=== PATIENT | male | born 1995 | race Two or more races ===

== ENCOUNTER 2016-11-25 17:16 | Emergency (ER) | payer OTHER ==
[~2016-11-25] VITALS: Ht 175.3 cm; Wt 88.6 kg
[~2016-11-25 17:16] MED LIST: AZIT250T PO; HYDR-971 PO; ONDA8TAB12 PO; PROM118S2 PO
[2016-11-25 17:28] VITALS: BP 122/75
[2016-11-25] MEDS ORDERED: KETOROLAC 60 MG/2 ML VIAL. IM ONE (18:00)
[2016-11-25] MEDS ORDERED: IBUP800T PO (18:04)
--- NOTE | 2016-11-25 18:05 | PHYS DOC ---
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 He states he has anteriorly dislocated in the right shoulder approximately 4 times. He states he popped it back in place but now is having significant pain in the right shoulder. He does have some range of motion in the right shoulder but it is limited secondary to pain. There is no obvious deformity or swelling seen. Review of Systems Review of Systems Constitutional: Denies fever or chills [] Eyes: Denies change in visual acuity, redness, or eye pain [] HENT: Denies nasal congestion or sore throat [] Respiratory: Denies cough or shortness of breath [] Cardiovascular: No additional information not addressed in HPI [] GI: Denies abdominal pain, nausea, vomiting, bloody stools or diarrhea [] : Denies dysuria or hematuria [] Musculoskeletal: Denies back pain, has joint pain [] Integument: Denies rash or skin lesions [] Neurologic: Denies headache, focal weakness or sensory changes [] Endocrine: Denies polyuria or polydipsia [] Current Medications Current Medications Current Medications Medications (Trade) Dose Ordered Sig/Brianda Start Time Stop Time Status Last Admin Dose Admin Ketorolac Tromethamine (Toradol) 60 mg 1X ONCE 11/25/16 18:00 11/25/16 18:01 11/25/16 17:45 60 MG Allergies Allergies Allergies Coded Allergies Type Severity Reaction Last Updated Verified No Known Drug Allergies 09/06/15 No Physical Exam Physical Exam Constitutional: Well developed, well nourished, no acute distress, non-toxic appearance. [] HENT: Normocephalic, atraumatic, bilateral external ears normal, oropharynx moist, no oral exudates, nose normal. [] Eyes: PERRLA, EOMI, conjunctiva normal, no discharge. [] Neck: Normal range of motion, no tenderness, supple, no stridor. [] Cardiovascular:Heart rate regular rhythm, no murmur [] Lungs & Thorax: Bilateral breath sounds clear to auscultation [] Abdomen: Bowel sounds normal, soft, no tenderness, no masses, no pulsatile masses. [] Skin: Warm, dry, no erythema, no rash. [] Back: No tenderness, no CVA tenderness. [] Extremities: Right sided shoulder tenderness, no palpable deformity or swelling , no cyanosis, no clubbing, ROM limited in right shoulder secondary to pain, no edema. [] Neurologic: Alert and oriented X 3, normal motor function, normal sensory function, no focal deficits noted. [] Psychologic: Affect normal, judgement normal, mood normal. [] Current Patient Data Vital Signs Vital Signs Date Time Temp Pulse Resp B/P Pulse Ox O2 Delivery O2 Flow Rate FiO2 11/25/16 17:28 97.8 81 20 97 EKG EKG [] Radiology/Procedures Radiology/Procedures Three-view of the right shoulder as interpreted by me did not reveal any obvious fracture or dislocation. Course & Med Decision Making Course & Med Decision Making Pertinent Labs and Imaging studies reviewed. (See chart for details) This 21-year-old male who had a right shoulder injury had a three-view of his right shoulder that does not demonstrate any obvious fracture or dislocation. Patient will be placed in a sling for the next several days and be given orthopedic follow-up. He is counseled to avoid any strenuous activities. He is to return to the ER if he develops any worsening of his pain or symptoms or feels as if he may have dislocated again. He was given an IM injection of Toradol with mild relief. He will continue taking anti-inflammatories at home as needed. Dragon Disclaimer Dragon Disclaimer This chart was dictated in whole or in part using Voice Recognition software in a busy, high-work load, and often noisy Emergency Department environment. It may contain unintended and wholly unrecognized errors or omissions. Departure Departure: Impression: Primary Impression: Right shoulder injury Disposition: 01 HOME, SELF-CARE Condition: IMPROVED Referrals: JACKSON ACOSTA DO (PCP) Patient Instructions: Shoulder Pain, [id number] Additional Instructions: Please follow up with your orthopedic surgeon within the next 2-3 days for your shoulder injury. Return to the ER if you develop any worsening of your pain. Avoid any strenuous activities for the next several days. Scripts Ibuprofen 800 Mg [id number] Mg PO Q6HRS #20 Prov:LARISA NAVARRETE DO 11/25/16 LARISA NAVARRETE DO Nov 25, 2016 18:04
--- NOTE | 2016-11-26 08:03 | RAD ---
Right shoulder radiographs History: Patient gives history of right shoulder dislocation earlier in the day which had been reduced prior to examination. Comparison: None. Findings: AP internal rotation, AP external rotation, and scapular Y-view of the right shoulder. No acute fracture or dislocation is identified. Impression: No acute osseous abnormality identified.
== END 2016-11-25 18:16 | disposition home or self-care (01) ==
LOC: ER 17:16
DX: S43.004A Unspecified dislocation of right shoulder joint, initial encounter (principal); X58.XXXA Exposure to other specified factors, initial encounter; Y93.89 Activity, other specified; Y92.89 Other specified places as the place of occurrence of the external cause; Y99.0 Civilian activity done for income or pay
CPT/HCPCS: 73030; 96372; 99284; J1885

== ENCOUNTER 2017-02-18 18:34 | Emergency (ER) | payer OTHER ==
[~2017-02-18] VITALS: Ht 175.3 cm; Wt 88.6 kg
[~2017-02-18 18:34] MED LIST changes: +IBUP800T19 PO
[2017-02-18] MEDS ORDERED: ONDANSETRON PF 4 MG/2 ML VIAL. IV ONE (19:00)
[2017-02-18] MEDS ORDERED: IV NORMAL SALINE 1,000ML 1,000 ML IV SCH (19:00)
--- NOTE | 2017-02-18 19:10 | PHYS DOC ---
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 He states he started feeling ill yesterday at end of his shift [id number] am. He has had nausea & vomiting 4-5 times today and at least for 4 watery loose stools. No blood in either the emesis or the stools. He has been working outside in the heat as well. He states he is on his feet all day. By the end of the shift he started feeling like he was going to pass out. No recent travel. No possible bad food exposure that he is aware of. No other sick contacts that he is aware of. Denies any seizure activity. States he feels very lightheaded presently and has a headache. [place] like a fever earlier at 9:00 this morning retaken and has some chills. No temperature here. His chest pain, no shortness of air. Review of Systems Review of Systems Constitutional: subjective fever & chills this am Eyes: Denies change in visual acuity, redness, or eye pain HENT: Denies nasal congestion or sore throat Respiratory: Denies cough or shortness of breath Cardiovascular: No chest pain and no palpitations GI: Denies abdominal pain. nausea, vomiting x 4 today; no bloody stools but 4 watery diarrhea stools : Denies dysuria or hematuria Musculoskeletal: Denies back pain or joint pain Integument: Denies rash or skin lesions Neurologic: Some headache, No focal weakness or sensory changes. Light headed and dizzy Current Medications Current Medications Current Medications Medications (Trade) Dose Ordered Sig/Brianda Start Time Stop Time Status Last Admin Dose Admin Ondansetron HCl (Zofran) 4 mg 1X ONCE 02/18/17 19:00 02/18/17 19:01 Sodium Chloride 1,000 ml @ 1,000 mls/hr Q1H 02/18/17 19:00 02/18/17 19:59 Allergies Allergies Allergies Coded Allergies Type Severity Reaction Last Updated Verified No Known Drug Allergies 09/06/15 No Physical Exam Physical Exam Constitutional: Well developed, well nourished, no acute distress, non-toxic appearance. HENT: Normocephalic, atraumatic, bilateral external ears normal, oropharynx moist, no oral exudates, nose normal. Eyes: PERRLA, EOMI, conjunctiva normal, no discharge. Neck: Normal range of motion, no tenderness, supple, no stridor. Cardiovascular:Heart rate regular rhythm, no murmur Lungs & Thorax: Bilateral breath sounds clear to auscultation Abdomen: Bowel sounds normal, soft, no tenderness, no masses, no pulsatile masses. Skin: Warm, dry, no erythema, no rash. Back: No tenderness, no CVA tenderness. Extremities: No tenderness, no cyanosis, no clubbing, ROM intact, no edema. Neurologic: Alert and oriented X 3, normal motor function, normal sensory function, no focal deficits noted. Psychologic: Affect normal, judgement normal, mood normal. Current Patient Data Vital Signs T 97.5, P 75, Sat 95%, R 12; BP 126/68 Vital Signs Date Time Temp Pulse Resp B/P (MAP) Pulse Ox O2 Delivery O2 Flow Rate FiO2 02/18/17 18:52 97.5 75 20 95 Room Air Lab Results Laboratory Tests Test 02/18/17 19:00 White Blood Count 7.9 x10^3/uL Red Blood Count 4.92 x10^6/uL Hemoglobin 15.3 g/dL Hematocrit 43.4 % Mean Corpuscular Volume 88 fL Mean Corpuscular Hemoglobin 31 pg Mean Corpuscular Hemoglobin Concent 35 g/dL Red Cell Distribution Width 12.9 % Platelet Count 151 x10^3/uL Neutrophils (%) (Auto) 54 % Lymphocytes (%) (Auto) 36 % Monocytes (%) (Auto) 8 % Eosinophils (%) (Auto) 1 % Basophils (%) (Auto) 1 % Neutrophils # (Auto) 4.3 x10^3uL Lymphocytes # (Auto) 2.8 x10^3/uL Monocytes # (Auto) 0.6 x10^3/uL Eosinophils # (Auto) 0.1 x10^3/uL Basophils # (Auto) 0.1 x10^3/uL D-Dimer (Erika) 0.30 mg/L Sodium Level 141 mmol/L Potassium Level 3.4 mmol/L Chloride Level 105 mmol/L Carbon Dioxide Level 28 mmol/L Anion Gap 8 Blood Urea Nitrogen 13 mg/dL Creatinine 1.0 mg/dL Estimated GFR (Cockcroft-Gault) 95.3 BUN/Creatinine Ratio 13 Glucose Level 91 mg/dL Calcium Level 9.1 mg/dL Magnesium Level 2.1 mg/dL Total Bilirubin 1.0 mg/dL Direct Bilirubin 0.2 mg/dL Aspartate Amino Transf (AST/SGOT) 17 U/L Alanine Aminotransferase (ALT/SGPT) 32 U/L Alkaline Phosphatase 75 U/L Creatine Kinase 144 U/L Creatine Kinase MB (Mass) 0.5 ng/mL Creatine Kinase MB Relative Index 0.3 % Troponin I Quantitative < 0.017 ng/mL Total Protein 7.8 g/dL Albumin 4.4 g/dL Albumin/Globulin Ratio 1.3 Lipase 73 U/L Current Medications Medications (Trade) Dose Ordered Sig/Brianda Route PRN Reason Start Time Stop Time Status Last Admin Dose Admin Sodium Chloride 1,000 ml @ 1,000 mls/hr Q1H IV 02/18/17 19:00 02/18/17 19:59 02/18/17 19:00 Ondansetron HCl (Zofran) 4 mg 1X ONCE IV 02/18/17 19:00 02/18/17 19:02 DC 02/18/17 19:00 EKG EKG EKG interpreted by myself. Heart rate of 64. Normal sinus rhythm. Nonspecific ST changes. No acute ST elevation. No prior EKG to compare this to Course & Med Decision Making Course & Med Decision Making Pertinent Labs and Imaging studies reviewed. (See chart for details) Evaluated patient upon arrival. IV NS and zofran dosed. Lab ordered. Will obtain stool if he has any diarrhea here. 1944 PM: Lab normal (normal D dimer); no stool while here in ED and no vomiting. Feels much better. P 66; BP 119/71 Dragon Disclaimer Dragon Disclaimer This chart was dictated in whole or in part using Voice Recognition software in a busy, high-work load, and often noisy Emergency Department environment. It may contain unintended and wholly unrecognized errors or omissions. Departure Departure: Impression: Primary Impression: Nausea vomiting and diarrhea Additional Impression: Viral syndrome Disposition: HOME, SELF-CARE Condition: IMPROVED Referrals: JACKSON ACOSTA DO (PCP) Scripts Ondansetron (ZOFRAN ODT) 8 Mg Tab.rapdis 8 MG PO PRN Q6HRS Y for VOMITING, #14 Prov: FARHAT RIOS MD 02/18/17 Problem Qualifiers FARHAT RIOS MD Feb 18, 2017 19:10
[2017-02-18 19:17] LABS: BASO # 0.1 x10^3/uL (0.0-0.2); BASO % 1 % (0-3); EOS # 0.1 x10^3/uL (0.0-0.7); EOS % 1 % (0-3); HEMATOCRIT 43.4 % (39.0-53.0); HEMOGLOBIN 15.3 g/dL (13.0-17.5); LYMPH # 2.8 x10^3/uL (1.0-4.8); LYMPH % 36 % (24-48); MEAN CORPUSCULAR HEMOGLOBIN 31 pg (25-35); MEAN CORPUSCULAR HGB CONC 35 g/dL (31-37); MEAN CORPUSCULAR VOLUME 88 fL (79-100); MONO # 0.6 x10^3/uL (0.0-1.1); MONO % 8 % (0-9); NEUT # 4.3 x10^3uL (1.8-7.7); NEUT % 54 % (31-73); PLATELET COUNT 151 x10^3/uL (140-400); RED BLOOD COUNT 4.92 x10^6/uL (4.30-5.70); RED CELL DISTRIBUTION WIDTH 12.9 % (11.5-14.5); WHITE BLOOD COUNT 7.9 x10^3/uL (4.0-11.0)
--- NOTE | 2017-02-18 19:22 | EKG ---
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
[2017-02-18 19:36] LABS: ALBUMIN 4.4 g/dL (3.4-5.0); ALBUMIN/GLOBULIN RATIO 1.3 (1.0-1.7); CALCIUM 9.1 mg/dL (8.5-10.1); DIRECT BILIRUBIN 0.2 mg/dL (0.0-0.2); GFR 95.3; MAGNESIUM 2.1 mg/dL (1.8-2.4); POTASSIUM 3.4 mmol/L (3.5-5.1); TOTAL PROTEIN 7.8 g/dL (6.4-8.2)
[2017-02-18 19:49] LABS: BILIRUBIN,URINE NEG (NEG); CLARITY,URINE CLEAR; COLOR,URINE YELLOW; GLUCOSE,URINE NEG (NEG); NITRITE,URINE NEG (NEG); UROBILINOGEN,URINE 0.2 mg/dL (0.2 mg/dL)
[2017-02-18 19:50] LABS: BACTERIA,URINE 0 /HPF (0-FEW); RBC,URINE OCC /HPF (0-2); SQUAMOUS EPITHELIAL CELL,UR OCC /LPF; WBC,URINE OCC /HPF (0-4)
[2017-02-18] MEDS ORDERED: ONDA8TAB12 PO (19:51)
[2017-02-18 20:00] VITALS: BP 113/54
[2017-02-18] MEDS ORDERED: ONDANSETRON ODT 4 MG TAB.RAPDIS PO ONE (20:15)
== END 2017-02-18 20:04 | disposition home or self-care (01) ==
LOC: ER 18:34
DX: B34.9 Viral infection, unspecified (principal); R42 Dizziness and giddiness; F17.210 Nicotine dependence, cigarettes, uncomplicated
CPT/HCPCS: 36415; 80053; 80076; 81001; 82553; 83690; 83735; 84484; 85027; 85379; 93005; 96361; 96374; 99285; J2405; Q0162; J7030

== ENCOUNTER 2017-03-29 02:18 | Emergency (ER) | payer OTHER ==
[~2017-03-29] VITALS: Ht 175.3 cm; Wt 88.6 kg
[2017-03-29 02:18] VITALS: BP 123/69
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
[2017-03-29] MEDS: EMTRICITAB/TENOFOVIR 200/300MG TABLET. PO ONE (03:47)
[2017-03-29] MEDS: RALTEGRAVIR 400 MG TABLET. PO ONE (03:47)
== END 2017-03-29 03:50 | disposition home or self-care (01) ==
LOC: ER 02:18
DX: S61.431A Puncture wound without foreign body of right hand, initial encounter (principal); Z77.21 Contact with and (suspected) exposure to potentially hazardous body fluids; F17.210 Nicotine dependence, cigarettes, uncomplicated; W46.1XXA Contact with contaminated hypodermic needle, initial encounter; Y93.89 Activity, other specified; Y99.8 Other external cause status; Y92.89 Other specified places as the place of occurrence of the external cause
CPT/HCPCS: 36415; 86701; 86702; 86703; 86706; 86803; 87535; 99284

== ENCOUNTER 2017-07-23 21:05 | Emergency (ER) | payer OTHER ==
[~2017-07-23] VITALS: Ht 175.3 cm; Wt 95.3 kg
[2017-07-23 21:50] LABS: INFLUENZA A PATIENT NEGATIVE (NEGATIVE); INFLUENZA B PATIENT NEGATIVE (NEGATIVE)
[2017-07-23 22:14] VITALS: BP 128/68
[2017-07-23] MEDS ORDERED: ALBUTEROL SULFATE 8GM INHALER. INH ONE (22:15)
[2017-07-23] MEDS ORDERED: predniSONE 10 MG TABLET PO ONE (22:15)
[2017-07-23] MEDS ORDERED: DOXYCYCLINE HYCLATE 100 MG TABLET PO ONE (22:15)
[2017-07-23] MEDS ORDERED: predniSONE 20 MG TABLET PO ONE (22:15)
[2017-07-23] MEDS ORDERED: PRED20TA PO (22:17)
[2017-07-23] MEDS ORDERED: DOXY100T PO (22:17)
--- NOTE | 2017-07-23 22:19 | PHYS DOC ---
General Chief Complaint: COUGH Stated Complaint: COUGH,N/V/D,SOA Time Seen by MD: 22:09 Source: patient Exam Limitations: no limitations Problems: History of Present Illness Initial Comments Patient is a 21-year-old male who comes in the ED complaining of cough and fever. Patient states that last week he had vomiting and diarrhea attributed to viral gastroenteritis. He was feeling well for a few days however over the past 24 hours and felt subjective fever and chills, a dry persistent cough and at times wheezing with shortness of breath. He recently stopped smoking, denies any actual chest pain travel or bad food exposure. Denies any blood in his cough and has no shortness of breath at rest. In the emergency department his vital signs are stable he is in no apparent distress. Timing/Duration: other Severity: mild Modifying Factors: worse with movement, improves with rest Associated Symptoms: cough, fever/chills, shortness of breath Allergies: Coded Allergies: No Known Drug Allergies (Unverified , 09/06/15) Past Medical History Medical History: seizure Surgical History: tonsillectomy Social History Smoker: quit less than 1 year Alcohol: none Drugs: none Review of Systems Constitutional: see HPI Respiratory: see HPI Cardiovascular: denies chest pain, denies palpitations, denies syncope Gastrointestinal: see HPI Musculoskeletal: denies back pain, denies joint swelling, denies neck pain Skin: denies rash Psychiatric/Neurological: denies headache, denies numbness, denies paresthesia Hematologic/Lymphatic: denies blood clots, denies easy bleeding, denies easy bruising Physical Exam General Appearance: WD/WN, no apparent distress Eyes: bilateral eye normal inspection, bilateral eye PERRL, bilateral eye EOMI Ear, Nose, Throat: other (frontal and maxillary sinus tenderness, green nasal discharge and postnasal drip, pharynx is erythematous no exudate and airway is widely patent) Neck: full range of motion, supple Respiratory: chest non-tender, wheezing (good air movement no respiratory distress no rhonchi at the radials) Cardiovascular: normal peripheral pulses, regular rate, rhythm Back: no CVA tenderness, no vertebral tenderness Extremities: non-tender, normal inspection Neurologic/Psychiatric: 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 I discussed prescription and [id number] medications, signs and symptoms to monitor as well as indications for urgent return to the department. His questions were answered to his satisfaction and he expressed agreement and understanding of treatment plan. Departure Time of Disposition: 22:17 Disposition: 01 HOME, SELF-CARE Diagnosis: sinusitis, bronchospasm Condition: STABLE Patient Instructions: Bronchospasm, Adult, Sinusitis, [id number] Additional Instructions: Please review the patient education materials given by ED staff. [id number] Tylenol and analgesic throat sprays as needed. Aggressive hydration with Gatorade or water. Use the albuterol inhaler with spacer: 2 puffs every 4 hours and as needed Prescription: Doxycycline, prednisone Follow-up with your doctor in 3-5 days for recheck. Return to the ED with new or changing symptoms. ARCELIA BAKER DO Jul 23, 2017 22:18
== END 2017-07-23 22:30 | disposition home or self-care (01) ==
LOC: ER 21:05
DX: J32.9 Chronic sinusitis, unspecified (principal); J98.01 Acute bronchospasm; Z87.891 Personal history of nicotine dependence
CPT/HCPCS: 87804; 94640; 99284; J7512; J7613; 94664

== ENCOUNTER 2017-12-01 13:54 | Emergency (ER) | payer OTHER ==
[2017-12-01 13:54] VITALS: BP 141/71
[~2017-12-01 13:54] MED LIST changes: +DOXY100T PO; +PRED20TA PO
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
== END 2017-12-01 15:25 | disposition home or self-care (01) ==
LOC: ER 13:54
DX: Z77.21 Contact with and (suspected) exposure to potentially hazardous body fluids (principal); F17.210 Nicotine dependence, cigarettes, uncomplicated
CPT/HCPCS: 99281